=== PATIENT | female | born 1945 | race Caucasian/White ===

== ENCOUNTER → 2018-01-12 | Outpatient (CLI) | payer OTHER ==
[~2018-01-12] MED LIST: ALBU90OI INH; AMIO200 PO; ASPI81EC; Aspir 8181 MG PO; BUPR150ER PO; CALCAVITD PO; CHOL10002 PO; Cranberry500 MG; DILT180; FISH1000 PO; Ferosul325 MG PO; Flecainide Acet50 MG PO; GABA300 PO; GLIP5 PO; GLUMETZA PO; HYDCHL25 PO; IBUP800 PO; INSULANPEN; MAGGLU250 PO; MAGNESIUM GLUCONATE PO; METF500 PO; METF500C PO; METO100ER; METO50ER PO; Metformin HCl1000 MG PO; Prednisone20 MG PO; SPIR25 PO; TORSE20 PO; VARE1 PO; XARELTO20 MG PO
== END | disposition home or self-care (01) ==
LOC: LAB SRC 14:00
DX: E11.65 Type 2 diabetes mellitus with hyperglycemia (principal)
CPT/HCPCS: 82043

== ENCOUNTER 2018-01-18 18:22 | Emergency (ER) | payer OTHER ==
[~2018-01-18] VITALS: Ht 170.2 cm; Wt 117.9 kg
[~2018-01-18 18:22] MED LIST changes: -Ferosul325 MG PO; -INSULANPEN; -Prednisone20 MG PO
[2018-01-18 19:05] LABS: BASOPHILS ABSOLUTE AUTO 0.05 K/mm3 (0.00-0.23); BASOPHILS PERCENT AUTO 0 % (0-2); EOSINOPHILS ABSOLUTE AUTO 0.13 K/mm3 (0.00-0.68); EOSINOPHILS PERCENT AUTO 1 % (0-6); Hematocrit 30.8 % (33.0-51.0); Hemoglobin 8.4 g/dL (11.5-16.0); IMMATURE GRAN ABSOLUTE AUTO 0.08 K/mm3 (0.00-0.10); IMMATURE GRAN PERCENT AUTO 1 % (0-1); LYMPHOCYTES ABSOLUTE AUTO 1.82 K/mm3 (0.84-5.20); LYMPHOCYTES PERCENT AUTO 15 % (21-46); MONOCYTES ABSOLUTE AUTO 0.76 K/mm3 (0.16-1.47); MONOCYTES PERCENT AUTO 6 % (4-13); Mean Corpuscular HGB 19.2 pg (26.0-34.0); Mean Corpuscular HGB Conc 27.3 g/dL (31.5-36.5); Mean Corpuscular Volume 70 fL (80-100); Mean Platelet Volume 10.1 fL (9.1-12.4); NEUTROPHILS ABSOLUTE AUTO 9.09 K/mm3 (1.96-9.15); NEUTROPHILS PERCENT AUTO 76 % (41-73); Platelet Count 458 K/mm3 (150-400); RDW Coefficient Variation 19.6 % (11.7-14.2); Red Blood Cell Count 4.38 M/mm3 (3.80-5.20); White Blood Cell Count 11.93 K/mm3 (4.00-11.30)
[2018-01-18 19:26] LABS: Alanine Aminotransfer (ALT/SGP 19 U/L (12-78); Albumin/Globulin Ratio 0.8 (0.8-1.8); Alk Phos 106 U/L (50-136); Anion Gap 9 mmol/L (6-16); Aspartate Aminotrans (AST/SGOT 19 U/L (12-37); Bilirubin, Total 0.3 mg/dL (0.1-1.0); Blood Urea Nitrogen 23 mg/dL (8-24); Bun/Creatinine Ratio 22.8 (12.0-20.0); CO2, Blood 32 mmol/L (21-32); Calcium, Blood 8.5 mg/dL (8.5-10.1); Chloride, Blood 99 mmol/L (98-108); Creatinine, Blood 1.01 mg/dL (0.40-1.00); Globulin, Blood 3.8 g/dL (2.2-4.0); Glomerular Filtration Rate 57 (60-); Glucose, Blood 153 mg/dL (70-99); Potassium, Blood 3.7 mmol/L (3.5-5.5); Sodium, Blood 140 mmol/L (136-145); Total Protein, Blood 6.8 g/dL (6.4-8.2); Troponin I <0.015 ng/mL (0.000-0.040)
[2018-01-18] MEDS ORDERED: Prednisone20 MG PO (20:32)
[2018-03-02] MEDS ORDERED: INSULANPEN (22:21)
== END 2018-01-18 20:43 | disposition home or self-care (01) ==
LOC: ER 18:22
PROVIDERS: Physician Assistant
DX: J44.1 Chronic obstructive pulmonary disease with (acute) exacerbation (principal); R60.0 Localized edema; Z79.84 Long term (current) use of oral hypoglycemic drugs; Z79.899 Other long term (current) drug therapy; I48.91 Unspecified atrial fibrillation; E11.9 Type 2 diabetes mellitus without complications; F17.210 Nicotine dependence, cigarettes, uncomplicated
CPT/HCPCS: 36415; 71046; 80053; 83880; 84484; 85025; 93005; 93010; 94640; 96374; 96375; 99283; J1940; J2930

== ENCOUNTER 2018-03-08 08:53 | Day surgery (SDC) | payer OTHER ==
[~2018-03-08] VITALS: Ht 170.2 cm; Wt 111.9 kg
[~2018-03-08 08:53] MED LIST changes: +INSULANPEN; +Prednisone20 MG PO
[2018-03-08] MEDS ORDERED: Ferosul325 MG PO (09:35)
== END 2018-03-08 11:00 | disposition home or self-care (01) ==
LOC: ORSCSDS 08:53
PROVIDERS: Internal Medicine Gastroenterology
PROC: 0DB68ZX Excision of Stomach, Via Natural or Artificial Opening Endoscopic, Diagnostic (ICD-10-PCS; principal; 2018-03-08 10:15)
PROC: 0DB98ZX Excision of Duodenum, Via Natural or Artificial Opening Endoscopic, Diagnostic (ICD-10-PCS; principal; 2018-03-08 10:15)
DX: D50.9 Iron deficiency anemia, unspecified (principal); K29.80 Duodenitis without bleeding; K20.9 Esophagitis, unspecified; K44.9 Diaphragmatic hernia without obstruction or gangrene; I48.0 Paroxysmal atrial fibrillation; J44.9 Chronic obstructive pulmonary disease, unspecified; E11.22 Type 2 diabetes mellitus with diabetic chronic kidney disease; I12.9 Hypertensive chronic kidney disease with stage 1 through stage 4 chronic kidney disease, or unspecified chronic kidney disease; N18.9 Chronic kidney disease, unspecified; G47.33 Obstructive sleep apnea (adult) (pediatric); F17.210 Nicotine dependence, cigarettes, uncomplicated; E66.01 Morbid (severe) obesity due to excess calories; Z68.41 Body mass index [BMI] 40.0-44.9, adult; Z79.01 Long term (current) use of anticoagulants; Z79.4 Long term (current) use of insulin; Z79.899 Other long term (current) drug therapy
CPT/HCPCS: 82947; 88305; 88342; J0330; J1980; J2250; J2405; J7120

== ENCOUNTER 2019-07-20 06:43 | Day surgery (SDC) | payer MEDICARE, SELFPAY ==
[~2019-07-20] VITALS: Ht 167.6 cm; Wt 107.9 kg
[~2019-07-20 06:43] MED LIST changes: +ALBU3IS; +ALBU90OI; +FLUT1DIS5; +Ferosul325 MG PO; +TRELEGY ELLIPT1 EACH
== END 2019-07-20 09:09 | disposition home or self-care (01) ==
LOC: ORSCSDS 06:43
PROVIDERS: Orthopaedic Surgery
PROC: 01N50ZZ Release Median Nerve, Open Approach (ICD-10-PCS; principal; 2019-07-20 08:15)
DX: G56.01 Carpal tunnel syndrome, right upper limb (principal); E11.9 Type 2 diabetes mellitus without complications; J44.9 Chronic obstructive pulmonary disease, unspecified; G47.33 Obstructive sleep apnea (adult) (pediatric); E66.9 Obesity, unspecified; Z68.38 Body mass index [BMI] 38.0-38.9, adult; Z79.01 Long term (current) use of anticoagulants; Z79.4 Long term (current) use of insulin; Z79.899 Other long term (current) drug therapy; Z87.891 Personal history of nicotine dependence
CPT/HCPCS: 82947; J2250; J2704; J3010; J3370; J7120

== ENCOUNTER 2019-10-28 16:51 | Inpatient (IN) | payer MEDICARE, SELFPAY ==
[~2019-10-28] VITALS: Ht 167.6 cm; Wt 122.9 kg
[~2019-10-28 16:51] MED LIST changes: -ALBU3IS; +DUONEB NEB; +FLECAINIDE ACE150 MG PO; +Fish Oil 10001000 MG PO
[2019-10-28] MEDS ORDERED: Lopressor 50 mg50 MG PO (17:32)
[2019-10-28] MEDS ORDERED: SPIR50 PO (17:32)
[2019-10-28] MEDS ORDERED: ALLO100 PO (17:33)
[2019-10-28 17:37] LABS: BASOPHILS ABSOLUTE AUTO 0.04 K/mm3 (0.00-0.23); BASOPHILS PERCENT AUTO 0 % (0-2); EOSINOPHILS ABSOLUTE AUTO 0.17 K/mm3 (0.00-0.68); EOSINOPHILS PERCENT AUTO 2 % (0-6); Hematocrit 29.6 % (33.0-51.0); IMMATURE GRAN ABSOLUTE AUTO 0.08 K/mm3 (0.00-0.10); IMMATURE GRAN PERCENT AUTO 1 % (0-1); LYMPHOCYTES ABSOLUTE AUTO 1.22 K/mm3 (0.84-5.20); LYMPHOCYTES PERCENT AUTO 11 % (21-46); MONOCYTES ABSOLUTE AUTO 0.59 K/mm3 (0.16-1.47); MONOCYTES PERCENT AUTO 5 % (4-13); Mean Corpuscular Volume 81 fL (80-100); Mean Platelet Volume 10.5 fL (9.1-12.4); NEUTROPHILS ABSOLUTE AUTO 9.03 K/mm3 (1.96-9.15); NEUTROPHILS PERCENT AUTO 81 % (41-73); NRBC ABSOLUTE 0.04 K/mm3 (0.00-0.02); NRBC Auto 0.4 /100 WBC (0.0-0.2); Platelet Count 383 K/mm3 (150-400); RDW Coefficient Variation 19.2 % (11.7-14.2); RDW Standard Deviation 56.8 fL (35.1-46.3); Red Blood Cell Count 3.64 M/mm3 (3.80-5.20); White Blood Cell Count 11.13 K/mm3 (4.00-11.30)
[2019-10-28 17:57] LABS: Anion Gap 8 mmol/L (6-16); Blood Urea Nitrogen 72 mg/dL (8-24); Bun/Creatinine Ratio 41.4 (12.0-20.0); CO2, Blood 28 mmol/L (21-32); Calcium, Blood 8.2 mg/dL (8.5-10.1); Chloride, Blood 102 mmol/L (98-108); Creatinine, Blood 1.74 mg/dL (0.40-1.00); Glomerular Filtration Rate 30 (60-); Glucose, Blood 198 mg/dL (70-99); Potassium, Blood 4.3 mmol/L (3.5-5.5); Sodium, Blood 138 mmol/L (136-145); Troponin I <0.015 ng/mL (0.000-0.040)
[2019-10-28] MEDS ORDERED: VITAMIN D350 MCG PO (19:47)
[2019-10-28] MEDS ORDERED: TRELEGY ELLIPT1 EACH INH (19:48)
[2019-10-28] MEDS ORDERED: BASAGLAR K100 UNIT/1 SC (22:12)
[2019-10-28 23:26] LABS: Creatinine, Urine Random 17.9 mg/dL (27.00-270.00)
[2019-10-28 23:53] LABS: Eosinophils-Raw #,Urine 0; White Blood Cells Urine Rare /hpf (0-5)
[2019-10-29 05:20] LABS: Hematocrit 28.3 % (33.0-51.0); Hemoglobin 7.8 g/dL (11.5-16.0); Mean Corpuscular HGB 22.1 pg (26.0-34.0); Mean Corpuscular HGB Conc 27.6 g/dL (31.5-36.5); Mean Corpuscular Volume 80 fL (80-100); Mean Platelet Volume 11.1 fL (9.1-12.4); Platelet Count 399 K/mm3 (150-400); RDW Coefficient Variation 19.3 % (11.7-14.2); RDW Standard Deviation 55.9 fL (35.1-46.3); Red Blood Cell Count 3.53 M/mm3 (3.80-5.20); White Blood Cell Count 10.72 K/mm3 (4.00-11.30)
--- NOTE | 2019-10-29 05:34 | NUR ---
SHIFT SUMMARY: VSS. AFEB. 02 SATS 94-96% ON 2L 02. SATS HAVE DROPPED LOW 83% WHEN PT REMOVED HER CPAP OR 02 FOR ANY REASON. CONT BIOX IN PLACE. NO RESPIRATORY DISTRESS TONIGHT. PT SLEPT FOR SHORT PERIODS OF TIMES- EACH TIME AFTER PRN OXYCODONE WAS ADMINISTERED. STATES SHE HAS CHRONIC INSOMNIA. SLEPT W/ HOB ELEVATED 30 DEGREES AND MANY PILLOWS TO PROP PT ON HER SIDE. PT RETURNS TO SITTING OR EVEN STANDING POSITION FREQUENTLY DURING THE NIGHT BLAMING LEG AND BACK PAIN. REPORTS BOTH ARE CHRONIC. GENERALIZED EDEMA OBSERVED. LE WHEEPING, ABD PADS APPLIED. SMALL AMT OF REDNESS OBSERVED ON B ANT SHINS- PICTURES TAKEN AND ADDED TO CHART. PT A/OX4, PLEASANT, COOPERATIVE, COMMUNICATES NEEDS WITHOUT DIFFICULTY.
[2019-10-29 05:47] LABS: Bun/Creatinine Ratio 46.1 (12.0-20.0); Calcium, Blood 8.5 mg/dL (8.5-10.1); Creatinine, Blood 1.52 mg/dL (0.40-1.00); Potassium, Blood 4.5 mmol/L (3.5-5.5)
--- NOTE | 2019-10-29 13:09 | NUR ---
CALLED DR CAMARENA AT 1305 TO ASK ABOUT PATIENT'S INDWELLING CATH. EXPLAINED THAT IT WAS PLACED BECAUSE WE ARE DIURESING PATIENT AND SHE BECOMES DYSPNIC WITH ANY EXERTION. THERE WAS PREVIOUSLY NO ACTIVE ORDER. ORDER PROVIDED BY DOCTOR CAMARENA.
--- NOTE | 2019-10-29 17:34 | NUR ---
SHIFT SUMMARY THE PATIENT HAD A DECENT DAY. DENIES PAIN. STILL DYSPNIC ESPECIALLY WITH EXERTION. PATIENT CONTINUES ON HEAVY DOSES OF IV BUMEX, AND HAS CALLE FOR I&O MONITORING WELL FREQUENT VOIDING. PATIENTS BLE WITH SMALL BLISTERS WHICH ARE WEEPING; RE-WRAPPED TODAY WITH ABDs AND ALPESH WRAPS TO HELP COLLECT THE DRAINAGE. THE PATIENT IS OTHERWISE WITHOUT ANY CHANGES TO REPORT ON AT THIS TIME. WILL CONTINUE TO MONITOR AND PROVIDE CARE NEEDED.
--- NOTE | 2019-10-30 03:38 | NUR ---
SHIFT SUMMARY PATIENT ALERT AND ORIENTED. TIRED, BUT IN GOOD SPIRITS OVERNIGHT. PATIENT HAD A HARD TIME SLEEPING AND SPENT MOST OF THE NIGHT DOZING WHILE SITTING ON THE EDGE OF THE BED WITH HER CPAP ON. SHE HAD PAIN IN HER BACK/LEGS AND WAS ADMINISTERED TWO PRN DOSES OF ROXICODONE OVERNIGHT. SHE WAS ABLE TO GET TO THE BATHROOM WITH MINIMAL ASSISTANCE WHILE USING HER CANE. CALLE CATHETER PATENT AND FLOWING. IV IN LEFT UPPER ARM PATENT AND FLUSHED. BED IN LOWEST POSITION WITH WHEELS LOCKED. CALL LIGHT AND BELONGINGS WITHIN REACH. REPORT GIVEN TO GINGER MONAE.
[2019-10-30 04:38] LABS: Hematocrit 27.6 % (33.0-51.0); Hemoglobin 7.9 g/dL (11.5-16.0); Mean Corpuscular HGB 22.1 pg (26.0-34.0); Mean Corpuscular HGB Conc 28.6 g/dL (31.5-36.5); Mean Corpuscular Volume 77 fL (80-100); Mean Platelet Volume 11.1 fL (9.1-12.4); NRBC ABSOLUTE 0.02 K/mm3 (0.00-0.02); NRBC Auto 0.3 /100 WBC (0.0-0.2); Platelet Count 319 K/mm3 (150-400); RDW Coefficient Variation 18.8 % (11.7-14.2); RDW Standard Deviation 52.8 fL (35.1-46.3); Red Blood Cell Count 3.57 M/mm3 (3.80-5.20); White Blood Cell Count 7.16 K/mm3 (4.00-11.30)
[2019-10-30 04:55] LABS: Calcium, Blood 8.6 mg/dL (8.5-10.1); Creatinine, Blood 1.79 mg/dL (0.40-1.00); Potassium, Blood 5.2 mmol/L (3.5-5.5)
--- NOTE | 2019-10-30 11:08 | NUR ---
PATIENT FOUND BY STAFF MEMBERS ABOUT TO COLLAPSE IN HER BATHROOM. PATIENT WAS VERY LETHARGIC AND IT TOOK 2X MAX ASSIST TO ASSIST PATIENT BACK TO HER BED. PATIENT HAD REMOVED HER CONT BIOX WELL HER OXYGEN. VITALS OBTAINED, ALL BUT HR WNL. HR IN THE LOW 30's. DR CAMARENA CALLED AND INFORMED OF SITUATION AT 1105. NEW ORDERS FOR TELE, 12-LEAD EKG AND D/C METOPROLOL.
--- NOTE | 2019-10-30 11:59 | NUR ---
BRIEF INITIAL VISIT AT THE REQUEST OF [facility] MASON TO ADDRESS PT'S DESIRED CODE STATUS. PT WAS INITIALLY DIFFICULT TO WAKE UP. SHE IS SITTING SUPINE, HOB ELEVATED WITH O2 ON VIA MAXIMIZER NASAL CANNULA. SHE APPEARS DYSPNIC EVEN IN SLEEP. SHE IS PALE EXCEPT FOR VERY BRIGHT RED NOSE. PER PT'S RN, PT REMOVES OXYGEN FREQUENTLY FOR LONG PERIODS OF TIME. PT HAS HAD A DECLINE IN CARDIAC AND RESPIRATORY STATUS SINCE YESTERDAY PER RNS AND REQUESTED THAT I VISIT TO ADDRESS HER WISHES WITH HER IN REGARD TO INTUBATION AND CPR. AFTER SEVERAL ATTEMPTS WITH VERBAL AND TACTILE STIMULI PT WOKE ENOUGH TO CONFIRM THAT SHE WAS AWAKE AND UNDERSTOOD THE CONVERSATION. MAXIMO STATES SHE UNDERSTANDS FROM THE DR THAT SHE IS VERY ILL. IF NEEDED TO SUSTAIN HER LIFE SHE DOES WANT CPR AND SHE DOES WANT INTUBATION. HER CURRENT CODE ORDERS ARE IN AGREEMENT WITH THE PT'S WISHES AT THIS TIME. PT DENIES FEELING PAIN OR DISTRESS AT THIS TIME. WHEN I NOTED TO HER THAT SHE APPEARS QUITE DYSPNIC, SHE SHRUGGED HER SHOULDERS. THIS MAY BE HER NORM. I WILL TRY TO FOLLOW UP WITH PT FOR FULL ASSESSMENT WHEN SHE IS MORE AWAKE AND STABLE. RT IN I WAS LEAVING TO COLLECT FOR ORDERED TESTS. REPORTED MY CONVERSATION WITH PT TO RN AND LEFT MESSAGE FOR ROCK MASON.
[2019-10-30 12:11] LABS: Base Excess Venous 0.8 mmol/L; Bicarbonate Venous 25.1 mmol/L (24.0-30.0); PCO2 Venous 39.9 mmHg (38-42); pH Blood Venous 7.41 (7.34-7.37)
--- NOTE | 2019-10-30 13:00 | NUR ---
PATIENTS LEGS CONTINUE TO OOZE. I OFFERED TO CHANGE THE DRESSINGS/WRAPS AND PATIENT DECLINED FOR THIS TIME.
--- NOTE | 2019-10-30 14:12 | NUR ---
PATIENT SLEEPING IN ROOM AT THIS TIME. BIPAP AND CONT BIOX REMAIN ON.
--- NOTE | 2019-10-30 15:03 | NUR ---
DR QUINTERO CAME BY TO SEE THE PATIENT. I INFORMED HIM OF THE SITUATION THAT OCCURED EARLIER THIS AFTERNOON, AFTER LOOKING OVER HER EKG HE STATED THAT THE PATIENT WILL NOT BE GOING IN FOR AN ECHO TOMORROW. FULL LIQUID DIET CONTINUES.
--- NOTE | 2019-10-30 16:55 | NUR ---
SHIFT SUMMARY PATIENT HAD A DIFFICULT DAY, SEE NOTES FROM EARLIER. WENT INTO PATIENTS ROOM ABOUT AN HOUR AGO AND THE PATIENT HAD HER O2 AND CONT BIOX OFF. BOTH WERE REPLACED AND THE PATIENT INSTRUCTED TO KEEP THEM ON. HR REMAINS LOW BUT PATIENT IS STEADY AT THE MOMENT. WILL CONTINUE TO MONITOR AND PROVIDE CARE NEEDED.
[2019-10-31 04:40] LABS: Hematocrit 29.9 % (33.0-51.0); Hemoglobin 8.1 g/dL (11.5-16.0); Mean Corpuscular HGB 21.7 pg (26.0-34.0); Mean Corpuscular HGB Conc 27.1 g/dL (31.5-36.5); Mean Platelet Volume 11.4 fL (9.1-12.4); NRBC ABSOLUTE 0.06 K/mm3 (0.00-0.02); NRBC Auto 0.9 /100 WBC (0.0-0.2); Platelet Count 282 K/mm3 (150-400); RDW Coefficient Variation 18.8 % (11.7-14.2); RDW Standard Deviation 54.5 fL (35.1-46.3); Red Blood Cell Count 3.73 M/mm3 (3.80-5.20); White Blood Cell Count 6.97 K/mm3 (4.00-11.30)
[2019-10-31 04:41] LABS: Mean Corpuscular Volume 80 fL (80-100)
[2019-10-31 04:55] LABS: Calcium, Blood 8.6 mg/dL (8.5-10.1); Creatinine, Blood 2.02 mg/dL (0.40-1.00); Potassium, Blood 5.9 mmol/L (3.5-5.5)
--- NOTE | 2019-10-31 07:22 | NUR ---
NOC SHIFT SUMMARY PT ADMITED FOR COPD EXACERBATION. SHE IS PLEASANT AND COOPERATIVE WITH CARE. SHE IS ON AN OXIMIZER AT 6-7L THIS NIGHT. SHE STATES SHE USUALLY USES HER CPAP AT HOME WITH 2L BEED IN. THIS WAS ATTEMPTED AND DID NOT KEEP HER SATS UP EVEN WITH A 12L BLEED IN OF O2. SATS NEVER GOT ABOVE 87. SWITCHED BACK TO OXIMIZER AND MAINTAINS IN MID 90'S. NO ACUTE CHANGES NOTED THIS NIGHT. VSS WITH APPROPRIATE OXYGEN DELIVERY. REPORT TO ONCOMING RN.
--- NOTE | 2019-10-31 14:00 | NUR ---
PATIENT PICKED UP BY ENDO TEAM AND TAKEN DOWN FOR HER ENDOSCOPY.
--- NOTE | 2019-10-31 14:45 | NUR ---
EGD POSTPONED BY ANESTHESIOLOGIST DUE TO ANNABELLE POTASSIUM LEVEL. DR QUINTERO AWARE, WILL RETURN TO ROOM AND GIVE MED TO TX POTASSIUM LEVEL AND THEN WILL MAKE NPO AFTER THAT.
--- NOTE | 2019-10-31 15:25 | NUR ---
PATIENT RETURNED TO ROOM WITHOUT PROCEDURE DUE TO POTASSIUM BEING TOO HIGH. MEDICATION ADMINISTERED TO HELP LOWER THE POTASSIUM AND PROCEDURE IS SET TO TAKE PLACE TOMORROW LATE AFTERNOON. PATIENT PLACED ON A CARDIAC DIET AT THIS TIME.
[2019-10-31 17:30] LABS: Bilirubin, Urine Neg (Neg); Blood, Urine 3+ (Neg); Glucose Qualitative, Urine Neg (Neg); Ketones, Urine Neg (Neg); Leukocyte Esterase, Urine 2+ (Neg); Nitrite, Urine Neg (Neg); Protein, Urine Neg (Neg); Urobilinogen, Urine NORM (Normal)
[2019-10-31 17:40] LABS: Appearance, Urine Hazy (Clear); Color, Urine Yellow (P-Yellow)
[2019-10-31 17:42] LABS: Bacteria Few /hpf; Squamous Epithelial Cells Rare /hpf (Few)
--- NOTE | 2019-10-31 18:01 | NUR ---
SHIFT SUMMARY THE PATIENT DID NOT END UP GETTING THE ENDOSCOPY TODAY DUE TO ELEVATED POTASSIUM LEVELS. PATIENT PLACED ON A CARDIAC DIET AND WILL RETURN TO NPO STATUS AT NOON TOMORROW WITH PLANS FOR THE SCOPE TOMORROW AFTERNOON. HR HAS BEEN STEADILY IN THE 50's; PATIENT REMAINS ON TELE AND CONTINUOUS BIOX AND HAS O2 VIA OXYMIZER AT 7L. PATIENT CALLS FOR STAFF ASSIST NEEDED; SHE WILL STAND AT THE EDGE OF THE BED TO STRETCH NEEDED HOWEVER KNOWS NOT TO ATTEMPT TO AMBULATE WITHOUT SBA. PATIENT NOW BEING FOLLOWED BY DR. MCCLENDON IN ADDITION TO DR CAMARENA AND DR ALLEN. WILL CONTINUE TO MONITOR AND PROVIDE CARE NEEDED.
[2019-10-31 18:14] LABS: Albumin, Blood 3.1 g/dL (3.4-5.0); Anion Gap 9 mmol/L (6-16); Blood Urea Nitrogen 87 mg/dL (8-24); Bun/Creatinine Ratio 43.5 (12.0-20.0); CO2, Blood 27 mmol/L (21-32); CPK Creatine Kinase 32 U/L (26-193); Calcium, Blood 8.5 mg/dL (8.5-10.1); Chloride, Blood 94 mmol/L (98-108); Glomerular Filtration Rate 26 (60-); Glucose, Blood 262 mg/dL (70-99); Phosphorus, Blood 5.5 mg/dL (2.5-4.9); Potassium, Blood 5.3 mmol/L (3.5-5.5); Sodium, Blood 130 mmol/L (136-145)
--- NOTE | 2019-10-31 18:37 | NUR ---
Initial spiritual care note: Mrs. Ramirez was alone in room and expressed frustration that she has been NPO since "tuesday." She clearly did not want lengthy visit, but was appreciaitve of prayer. I will remain available.
[2019-11-01 04:55] LABS: BASOPHILS ABSOLUTE AUTO 0.01 K/mm3 (0.00-0.23); BASOPHILS PERCENT AUTO 0 % (0-2); EOSINOPHILS PERCENT AUTO 0 % (0-6); Hematocrit 27.7 % (33.0-51.0); Hemoglobin 7.5 g/dL (11.5-16.0); IMMATURE GRAN ABSOLUTE AUTO 0.15 K/mm3 (0.00-0.10); IMMATURE GRAN PERCENT AUTO 2 % (0-1); LYMPHOCYTES ABSOLUTE AUTO 0.12 K/mm3 (0.84-5.20); LYMPHOCYTES PERCENT AUTO 2 % (21-46); MONOCYTES ABSOLUTE AUTO 0.11 K/mm3 (0.16-1.47); MONOCYTES PERCENT AUTO 2 % (4-13); Mean Corpuscular HGB 21.4 pg (26.0-34.0); Mean Corpuscular HGB Conc 27.1 g/dL (31.5-36.5); Mean Corpuscular Volume 79 fL (80-100); NEUTROPHILS ABSOLUTE AUTO 7.12 K/mm3 (1.96-9.15); NEUTROPHILS PERCENT AUTO 95 % (41-73); NRBC ABSOLUTE 0.05 K/mm3 (0.00-0.02); NRBC Auto 0.7 /100 WBC (0.0-0.2); Platelet Count 275 K/mm3 (150-400); RDW Coefficient Variation 18.8 % (11.7-14.2); RDW Standard Deviation 54.3 fL (35.1-46.3); White Blood Cell Count 7.51 K/mm3 (4.00-11.30)
[2019-11-01 05:12] LABS: Anion Gap 9 mmol/L (6-16); Blood Urea Nitrogen 88 mg/dL (8-24); Bun/Creatinine Ratio 43.1 (12.0-20.0); CO2, Blood 26 mmol/L (21-32); Calcium, Blood 8.2 mg/dL (8.5-10.1); Chloride, Blood 97 mmol/L (98-108); Creatinine, Blood 2.04 mg/dL (0.40-1.00); Glomerular Filtration Rate 25 (60-); Glucose, Blood 389 mg/dL (70-99); Potassium, Blood 5.3 mmol/L (3.5-5.5); Sodium, Blood 132 mmol/L (136-145)
--- NOTE | 2019-11-01 06:32 | NUR ---
SHIFT SUMMARY PT IS A 74 Y/O FEMALE, ADMITTED FOR COPD EXACERBATION. SHE IS A&O X 3, AND A 1PA UP TO THE [facility] [place]. PT REMAINED ON O2 VIA OXIMIZER @ 9L, AND USES A CPAP AT NIGHT WITH AN O2 BLEED IN. THE PT HAD AN EPISODE OF LOW O2 WHILE SLEEPING WITH THE CPAP ON, DOWN TO 84-85%. THE O2 WAS INCREASED FROM 8L TO 10L, BUT THE PT'S SATS DID NOT INCREASE UNTIL PT WAS WOKEN. ALL OTHER VITALS STABLE. NO OTHER ACUTE CHANGES IN PT CONDITION NOTED. WILL CONTINUE TO MONITOR AND TREAT PER EMAR UNTIL HAND OFF TO DAY SHIFT RN.
--- NOTE | 2019-11-01 15:18 | NUR ---
History, Chart, Medications and Allergies reviewed before start of procedure.Patient confirms NPO status and agrees with scheduled surgery.
--- NOTE | 2019-11-01 15:52 | NUR ---
11/01/19 1552 KEVON BEAN History, Chart, Medications and Allergies reviewed before start of procedure.3-LEAD EKG REVIEWED WITH PHYSICIAN PRIOR TO START OF PROCEDURE.O2 VIA N/C INTACT THROUGHOUT SEDATION/PROCEDURE. MONITOR INTACT WITH CONTINUOUS PULSE OXIMETRY AND INTERMITTENT BP.MAC WITH DR. TEIXEIRA.
--- NOTE | 2019-11-01 17:17 | NUR ---
SUMMARY PT SCHEDULED FOR EGD, THIS AM SHE HAD WATER/ICE, THEN NPO @ 1200, WENT OUT FOR EGD APPROX 1330. BACK TO ROOM @ 1530, DR QUINTERO IN TO SEE HER STATE NORMAL FINDINGS, ORDER ADA DIET. H&H 7.5/27.7, FE+ 325MG TAB GIVEN. SHE CONTINUES TO EXPERIENCE INCREASED O2 NEEDS, @ 9-10 LITERS/MIN TODAY, RESPTHER MANAGING. PT HAS CONTINUING WET/CONGESTED COUGH, DR CAMARENA ORDER CXR. DR MCCLENDON ORDER IV BUMEX. BLE EDEMATOUS, 3+, TIGHT, LEGS WEEPY WRAPPED W ABD/ALPESH WRAP. SHE IS A/O X 4, PLEASANT, 1 ASSIST UP TO CHAIR. VSS.
--- NOTE | 2019-11-02 04:36 | NUR ---
SHIFT SUMMARY PT IS A 74 Y/O FEMALE, ADMITTED FOR COPD EXACERBATION. SHE IS A 1PA UP TO THE [facility] [place], WITH A CALLE IN PLACE FOR STRICT I&O. PT REPORTED GENERALIZED PAIN, AND WAS MEDICATED TWICE WITH PRN OXYCODONE. NO COMPLAINTS OF NAUSEA. PT DOES GET SOB WITH EXERTION. SHE IS ON CONTINUOUS BIOX, AND TENDS TO DROP TO 85-88% WHILE SLEEPING ON THE BIPAP. PT'S O2 BLEED IN WAS INCREASED TO 12L OVER THE NIGHT DUE TO O2 SATS DROPPING. PT IS ALSO ON 10L O2 VIA OXIMIZER WHILE AWAKE. AT BEDTIME, CBG WAS 404. THE HOSPITALIST MARBELLA NEWSOME WAS CONSULTED, AND THE PT WAS STARTED BACK UP ON HER HOME DOSE OF LANTUS, 60 UNITS BID. PT SLEPT WELL OFF AND ON DURING THE NIGHT. NO OTHER ACUTE CHANGES IN PT CONDITION NOTED. WILL CONTINUE TO MONITOR AND TREAT PER EMAR UNTIL HAND OFF TO DAY SHIFT RN.
[2019-11-02 08:07] LABS: BASOPHILS PERCENT AUTO 0 % (0-2); EOSINOPHILS PERCENT AUTO 0 % (0-6); Hemoglobin 7.4 g/dL (11.5-16.0); IMMATURE GRAN ABSOLUTE AUTO 0.06 K/mm3 (0.00-0.10); IMMATURE GRAN PERCENT AUTO 1 % (0-1); LYMPHOCYTES ABSOLUTE AUTO 0.09 K/mm3 (0.84-5.20); LYMPHOCYTES PERCENT AUTO 1 % (21-46); MONOCYTES ABSOLUTE AUTO 0.38 K/mm3 (0.16-1.47); MONOCYTES PERCENT AUTO 5 % (4-13); Mean Corpuscular HGB Conc 27.4 g/dL (31.5-36.5); Mean Corpuscular Volume 80 fL (80-100); Mean Platelet Volume 10.9 fL (9.1-12.4); NEUTROPHILS ABSOLUTE AUTO 7.21 K/mm3 (1.96-9.15); NEUTROPHILS PERCENT AUTO 93 % (41-73); NRBC ABSOLUTE 0.05 K/mm3 (0.00-0.02); NRBC Auto 0.6 /100 WBC (0.0-0.2); Platelet Count 240 K/mm3 (150-400); RDW Coefficient Variation 18.6 % (11.7-14.2); RDW Standard Deviation 54.4 fL (35.1-46.3); Red Blood Cell Count 3.37 M/mm3 (3.80-5.20); White Blood Cell Count 7.74 K/mm3 (4.00-11.30)
[2019-11-02 08:24] LABS: Albumin, Blood 2.9 g/dL (3.4-5.0); Anion Gap 2 mmol/L (6-16); Blood Urea Nitrogen 76 mg/dL (8-24); Bun/Creatinine Ratio 47.5 (12.0-20.0); CO2, Blood 34 mmol/L (21-32); Calcium, Blood 8.4 mg/dL (8.5-10.1); Chloride, Blood 101 mmol/L (98-108); Glomerular Filtration Rate 33 (60-); Glucose, Blood 395 mg/dL (70-99); Phosphorus, Blood 4.2 mg/dL (2.5-4.9); Potassium, Blood 5.3 mmol/L (3.5-5.5); Sodium, Blood 137 mmol/L (136-145)
--- NOTE | 2019-11-02 08:55 | NUR ---
PATIENT STARTED THE MORNING WITH A BLOOD SUGAR OF 407. SPOKE WITH DR. CAMARENA AND HE STATED TO GIVE THE LANTUS ORDER OF 60 UNITS AND THE THE 12 UNITS OF SLIDING SCALE. PATIENT WAS GIVEN THE 12 UNITS OF SLIDING SCALE AND HER BLOOD SUGAR ONE HOUR LATER IS 380. WILL ALERT DR. CAMARENA AT THIS TIME OF THE SLIGHT CHANGE OF BLOOD SUGAR.
--- NOTE | 2019-11-02 09:42 | NUR ---
PATIENT IS VERY LETHARGIC THIS MORNING. SHE IS NOW ON THE NASAL CANNULA. BLOOD SUGAR IS STILL HIGH AND PATIENT REFUSED TO EAT HER BREAKFAST THIS MORNING DUE TO LETHARGY.
--- NOTE | 2019-11-02 18:14 | NUR ---
SHIFT SUMMARY PATIENT PLEASANT. ALERT AND ORIENTED. NO ACUTE CONCERNS AT THIS TIME. HER LEGS ARE UNWRAPPED, NO WEEPING. EDEMA IS DOWN. PATIENT DOES NOTE THAT SHE IS FEELING STEADY TODAY. SHE HAS BEEN STANDING AT THE EDGE OF THE BED INDEPENDENTLY. PATIENT DENIES ANY PAIN OR CONCERNS. TELE IS READING SINUS WITH A BUNDLE BRANCH BLOCK, AND FIRST DEGREE HEART BLOCK.
[2019-11-02 20:49] LABS: Bun/Creatinine Ratio 47.7 (12.0-20.0); Calcium, Blood 8.6 mg/dL (8.5-10.1); Creatinine, Blood 1.51 mg/dL (0.40-1.00); Magnesium, Blood 2.7 mg/dL (1.6-2.4); Potassium, Blood 4.3 mmol/L (3.5-5.5)
--- NOTE | 2019-11-03 04:15 | NUR ---
RECIEVED CALL FROM TELE MONITOR AT APPROX 193 RELATING THAT PT HEART RATE HAD INCREASED SIGNIFICANTLY. UP TO 150'S. CAME TO ROOM AND OBSERVED PT HR WAS IN THE 150'S AND EVEN CLIMBING INTO THE 170'S. PT DENIED CHEST PAIN BUT DID FEEL HEART RACING. LETHA MCDONALD STAYED WITH PT WHILE I CALLED TO HOSPITALIST FRED NEWSOME. RECIEVED ORDER TO OBTAIN EKG AND 5ML LOPRESSOR IV. MERCEDEZ CAME TO ROOM EKG OBTAINED AND LOPRESSOR GIVEN. REDUCED HR TO THE 130'S. ANOTHER 2.5MG LOPRESSOR ORDERED IV AND HR REDUCED TO AROUND 110. SHORTLY AFTER THIS HR INCREASED AGAIN TO 130'S-140'S. CALLED TO MERCEDEZ AND OBTAINED ORDERS FOR TRANSFER TO PCU, PORTALBE XRAY, AND CARDIZEM DRIP STARTING AT 5MG PER HOUR. REPORT TO KAMALA JEWEL HOLE GAUGER AT 2054. PT TRANSFERED TO PCU AT 2104. PT AAOX4, RESP EVEN ON 10L OXIMIZER.
[2019-11-03 04:22] LABS: BASOPHILS ABSOLUTE AUTO 0.02 K/mm3 (0.00-0.23); BASOPHILS PERCENT AUTO 0 % (0-2); EOSINOPHILS ABSOLUTE AUTO 0.01 K/mm3 (0.00-0.68); EOSINOPHILS PERCENT AUTO 0 % (0-6); Hematocrit 28.4 % (33.0-51.0); Hemoglobin 7.7 g/dL (11.5-16.0); IMMATURE GRAN ABSOLUTE AUTO 0.11 K/mm3 (0.00-0.10); IMMATURE GRAN PERCENT AUTO 1 % (0-1); LYMPHOCYTES ABSOLUTE AUTO 0.82 K/mm3 (0.84-5.20); LYMPHOCYTES PERCENT AUTO 5 % (21-46); MONOCYTES ABSOLUTE AUTO 0.93 K/mm3 (0.16-1.47); MONOCYTES PERCENT AUTO 5 % (4-13); Mean Corpuscular HGB 21.5 pg (26.0-34.0); Mean Corpuscular HGB Conc 27.1 g/dL (31.5-36.5); Mean Corpuscular Volume 79 fL (80-100); Mean Platelet Volume 10.3 fL (9.1-12.4); NEUTROPHILS ABSOLUTE AUTO 15.86 K/mm3 (1.96-9.15); NEUTROPHILS PERCENT AUTO 89 % (41-73); NRBC ABSOLUTE 0.03 K/mm3 (0.00-0.02); NRBC Auto 0.2 /100 WBC (0.0-0.2); Platelet Count 224 K/mm3 (150-400); RDW Coefficient Variation 18.6 % (11.7-14.2); RDW Standard Deviation 53.3 fL (35.1-46.3); Red Blood Cell Count 3.58 M/mm3 (3.80-5.20); White Blood Cell Count 17.75 K/mm3 (4.00-11.30)
[2019-11-03 04:47] LABS: Anion Gap 3 mmol/L (6-16); Blood Urea Nitrogen 68 mg/dL (8-24); Bun/Creatinine Ratio 48.9 (12.0-20.0); CO2, Blood 36 mmol/L (21-32); Calcium, Blood 8.6 mg/dL (8.5-10.1); Chloride, Blood 102 mmol/L (98-108); Creatinine, Blood 1.39 mg/dL (0.40-1.00); Glomerular Filtration Rate 39 (60-); Glucose, Blood 32 mg/dL (70-99); Phosphorus, Blood 2.6 mg/dL (2.5-4.9); Potassium, Blood 3.7 mmol/L (3.5-5.5); Sodium, Blood 141 mmol/L (136-145)
--- NOTE | 2019-11-03 05:43 | NUR ---
PCU NOC SHIFT SUMMARY - TRANSFER FROM MEDICAL PATIENT ARRIVED FROM MEDICAL FLOOR ON 10 LPM OXYMIZER CANNULA; PATIENT ABLE TO STAND AND TRANSFER FROM [facility] TO UNIT BED. CARDIEZEM STARTED PER EMAR UPON ARRIVAL. VSS. CONTINUOUS BIOX IN PLACE. PATIENT HEART RATE AFIB IN THE 130S UPON ARRIVAL - CURRENTLY DOWN TO 100-100 ON 15 ML/HR OF CARDIEZEM T/O SHIFT. PATIENT TOLERATED HER CPAP WELL DURING SLEEPING PERIODS. PATIENT HAS EXPIRTORY WHEEZES TO RHONIC T/O LOBES FOR LUNG SOUNDS - PATIENT WEARS OXYGEN 2 LPM AND CPAP AT HOME. PATIENT HAS HACKING CHRONIC NONPRODUCTIVE COUGH. PATIENT EDUCATED TO UNIT AND ORIENTED TO ROOM. PATIENT DENIES ANY PAIN T/O SHIFT. PATIENT HAS SEVERE WHEEPING OF BLE WITH 3-4 + PITTING EDEMA. SMALL SCABS SCATTERED T/O WITH BRUISING NOTED. PATIENT IN NO ACUTE DISTRESS T/O SHIFT. PATIENT SBA TO BEDSIDE COMMODE. CALLE CATH REMOVED AND PATIENT VOID X2 AFTER REMOVAL. WILL CONTINUE TO MONITOR AND REPORT TO DAYSHIFT RN.
--- NOTE | 2019-11-03 07:22 | NUR ---
ASSUMED CARE: PT SITTING AT SIDE OF BED. OXYMIZER IN PLACE AT 7L. CARDIZEM GTT AT 15 MG/HR AT THIS TIME. AFIB 103 AT THIS TIME. DENIES NEEDS OR CONCERNS AT THIS TIME.
--- NOTE | 2019-11-03 10:00 | NUR ---
DISCUSSED WITH DR CAMARENA PT'S CBGS THIS AM. STATED HE WOULD REVIEW. DR ALSO AWARE THAT NO CURRENT ANTICOAGULATION ORDERED. STATED ANTICOAGULATION IS PER INSTRUCTION OF DR QUINTERO DUE TO RECENT GI BLEED.
--- NOTE | 2019-11-03 18:42 | NUR ---
SHIFT SUMMARY: PT RECIEVED ONE UNIT OF PRBCS FOR ANEMIA. REMAINS ON CARDIZEM GTT AT 10MG/HR AT THIS TIME. LOW 90S ON 7L OXYMIZER. SBA TO BSC. DENIES NEEDS OR CONCERNS. REMAINS IN AFIB
--- NOTE | 2019-11-04 05:45 | NUR ---
END OF SHIFT SUMMARY NO ACUTE CHANGES THIS SHIFT. PT REMAINS ON 7L OXYMIZER AND 7L BLEEDIN CPAP AT REST. DOES HAVE INT WHEEZING BUT THIS NGENERALLY RESIDES. HAS HAD PRN RT TREATMENTS BUT HAS OVERALL STATED IMPROVEMENT IN BREATHING. REMAINS IN AFIB, CARDIZEM TITRATED TO 5 THIS SHIFT DUE TO HR MAINTAINING <90 BPM. HAS BEEN MOBILE IN BED AND HAS BEEN UP TO BSC MULTIPLE TIMES THIS SHIFT WITH INSTRUCTOR TRAFFIC SAFETY. TOLERATES THIS WELL BUT NEEDS HELP MANAGING IV/O2 LINES. LEGS EXTREMELY WEEPY. WILL CONTINUE TO MONITOR UNTIL SHIFT CHANGE.
[2019-11-04 08:42] LABS: Hematocrit 34.8 % (33.0-51.0); Hemoglobin 9.6 g/dL (11.5-16.0)
[2019-11-04 09:00] LABS: Albumin, Blood 2.9 g/dL (3.4-5.0); Anion Gap 2 mmol/L (6-16); Blood Urea Nitrogen 53 mg/dL (8-24); Bun/Creatinine Ratio 48.2 (12.0-20.0); CO2, Blood 38 mmol/L (21-32); Calcium, Blood 8.5 mg/dL (8.5-10.1); Chloride, Blood 100 mmol/L (98-108); Glomerular Filtration Rate 51 (60-); Glucose, Blood 101 mg/dL (70-99); Phosphorus, Blood 2.3 mg/dL (2.5-4.9); Potassium, Blood 3.9 mmol/L (3.5-5.5); Sodium, Blood 140 mmol/L (136-145)
--- NOTE | 2019-11-04 17:43 | NUR ---
EVENING NOTE PT AWAKE AND ALERT. AFIB. CONTINUES ON CARDIZEM GTT 5MG/HR. HR 100-120BPM. DR CAMARENA AWARE. DR CAMARENA REQUESTED AN EXTRA METOPROLOL 12.5 MG BE GIVEN TO PT. VS. UP TO THE BSC FREQUENTLY TO VOID LARGE AMOUNTS. EDEMA BLE 3+ AND STILL WEEPING. DRESSED BLE WITH ABD,KERLEX AND STOCKENETTE. CONTIBNUE POT.
--- NOTE | 2019-11-05 05:25 | NUR ---
END OF SHIFT SUMMARY NO ACUTE CHANGES THIS SHIFT. VSS. REMAINS IN AFIB 80'S TO 90'S, CARDIZEM GTT 5, BP STABLE. O2 TITRATED TO 5L THIS SHIFT, PT HAS TOLERATED THIS WELL. LEGS REMAIN WRAPPED R/T WEEPING. PT HAS BEEN ON HER CPAP WITH 5L BLEEDIN FOR MAJORITY OF SHIFT AND HAS APPEARED TO SLEEP SOUNDLY THIS SHIFT. [facility] [place] [facility] MULTIPLE TIMES. WILL CONTINUE TO MONITOR UNTIL SHIFT CHANGE.
[2019-11-05 15:07] LABS: A/G RATIO 1.2 (0.7-1.7); ALBUMIN 3.2 g/dL (2.9-4.4); ALPHA-1-GLOBULIN 0.3 g/dL (0.0-0.4); ALPHA-2-GLOBULIN 0.6 g/dL (0.4-1.0); BETA GLOBULIN 1.1 g/dL (0.7-1.3); GAMMA GLOBULIN 0.9 g/dL (0.4-1.8); GLOBULIN, TOTAL 2.9 g/dL (2.2-3.9); IMMUNOGLOBULIN A, QN, SERUM 373 mg/dL (64-422); IMMUNOGLOBULIN G, QN, SERUM 955 mg/dL (700-1600); IMMUNOGLOBULIN M, QN, SERUM 30 mg/dL (26-217); M-SPIKE Not Observed g/dL (Not Observed); PROTEIN, TOTAL, SERUM 6.1 g/dL (6.0-8.5)
--- NOTE | 2019-11-05 18:41 | NUR ---
SHIFT NOTE PT HAS HAD OXYGEN TITRATED DOWN TO 3L NASAL CANNULA, AND CARDIZEM HAS BEEN STOPPED. HR IS 90s WITH AFIB, SPO2 93% ON THE 3L O2. PT SITTING UP AT BEDSIDE VISITING WITH FAMILY. PT TALKING IN FULL SENTENCES. PT HAS BEEN UP TO BATHROOM AND BEDSIDE CHAIR WITH USE OF FWW W/O DIFF. PT A/O X4. LESS EDEMA NOTED TO LOWER LEGS AT END OF SHIFT AND WHEEPING FROM LOWER LEGS HAS SLOWED
--- NOTE | 2019-11-05 19:15 | NUR ---
ASSUME CARE: REPORT RECIEVED FROM BENY OFF GOING RN. MONITOR INTACT SHOWING A FIB HEART RATE 80'S-100'S. PERIODS OF 120'S W ACTIVITY. RECOVERS WITH IN 10-15 MIN. REQUEST BSC MOD ASSIST WITH ONE PERSON. VOIDS MONA URINE. ABDOMEN SOFT WITH BOWERL OUNDS FOUR QUADS. DRESSINGS TO LEGS CHANGED WITH WEEPING EDEMA NOTED. INCONTINENT OF URINE. CONTINUE TO MONITOR AND REPORT CHANGE IN PATIENT CONDITION
[2019-11-06 04:01] LABS: Albumin, Blood 2.5 g/dL (3.4-5.0); Anion Gap 2 mmol/L (6-16); Blood Urea Nitrogen 52 mg/dL (8-24); Bun/Creatinine Ratio 44.8 (12.0-20.0); CO2, Blood 37 mmol/L (21-32); Calcium, Blood 8.1 mg/dL (8.5-10.1); Chloride, Blood 102 mmol/L (98-108); Creatinine, Blood 1.16 mg/dL (0.40-1.00); Glomerular Filtration Rate 48 (60-); Glucose, Blood 151 mg/dL (70-99); Phosphorus, Blood 2.2 mg/dL (2.5-4.9); Potassium, Blood 4.1 mmol/L (3.5-5.5); Sodium, Blood 141 mmol/L (136-145)
--- NOTE | 2019-11-06 06:21 | NUR ---
SHIFT SUMMARY RESTS QUIETLY WHEN UNDISTURBED MONITOR INTACT SHOWING A FIB. HEART RATE 100'S-110'S. SPO2 94-[address] OR O2 2 6L/MIN LUNG SOUNDS COARSE WITH OCC HARSH COUGH. ABDOMEN SOFT WITH BOWEL SOUNDS FOUR QUADS ATTEND IN PLACE ECONDARY TO OCC INCONTINENCE UP TO BSC WITH MINIMAL ASSIST AND WALKER. VOIDS MONA ODERIFORUS SMELLING URINE DRESSINGS TO LOWER EXTREMITIES INTACT SECONDARY TO WEEPING EDEMA CONTINUE TO MONITOR and repot change in patient condition
--- NOTE | 2019-11-06 18:49 | NUR ---
SHIFT SUMMARY PT A&Ox4. CALM AND COOPERATIVE WITH CARE. PT RESTING IN BED; UP TO BSC WITH 1 PERSON ASSIST. PT REPORTS PAIN IN BLE; MEDICATED x1 WITH OXYCODONE WITH POSITVE RESULTS. PT SOB WITH EXERTION; PT ON 3L O2 VIA OXYMIZER; PT 90-92% T/P SHIFT, DIPPING TO 87-89 WITH EXERTION. PT DENIES NAUSEA; HAS GOOD APPETEITE. HR AFIB 90-110'S, OCCASIONALLY TOUCHING 120'S WITH ACTIVITY. VSS. NO OTHER ACUTE CHANGES NOTED DURING SHIFT WILL CONTINUE TO MONITOR UNILT RPEORT GIVEN TO ONCOMING RN.
--- NOTE | 2019-11-07 01:41 | NUR ---
started cpap, placed and adjusted mask as pt directed, currently watching tv, no alarm sounding, o2%>92, will continue to monitor and treat
[2019-11-07 03:46] LABS: BASOPHILS PERCENT AUTO 0 % (0-2); EOSINOPHILS PERCENT AUTO 1 % (0-6); Hematocrit 33.3 % (33.0-51.0); Hemoglobin 9.1 g/dL (11.5-16.0); IMMATURE GRAN ABSOLUTE AUTO 0.07 K/mm3 (0.00-0.10); IMMATURE GRAN PERCENT AUTO 1 % (0-1); LYMPHOCYTES ABSOLUTE AUTO 0.62 K/mm3 (0.84-5.20); LYMPHOCYTES PERCENT AUTO 5 % (21-46); MONOCYTES PERCENT AUTO 5 % (4-13); Mean Corpuscular HGB 22.2 pg (26.0-34.0); Mean Corpuscular HGB Conc 27.3 g/dL (31.5-36.5); Mean Corpuscular Volume 81 fL (80-100); Mean Platelet Volume 11.7 fL (9.1-12.4); NEUTROPHILS ABSOLUTE AUTO 10.22 K/mm3 (1.96-9.15); NEUTROPHILS PERCENT AUTO 88 % (41-73); Platelet Count 196 K/mm3 (150-400); RDW Coefficient Variation 19.2 % (11.7-14.2); RDW Standard Deviation 56.8 fL (35.1-46.3); Red Blood Cell Count 4.09 M/mm3 (3.80-5.20); White Blood Cell Count 11.61 K/mm3 (4.00-11.30)
--- NOTE | 2019-11-07 07:34 | NUR ---
no acute changes in condition during shift, bed in low position, saline locked, 4L via oximizer, RT working on solving issue with optimizer, denies sob, ls clear, using ear probe for better reading than digits, bsr shared with returning day nurse and pt
[2019-11-07 08:47] LABS: Bun/Creatinine Ratio 48.1 (12.0-20.0); Calcium, Blood 8.3 mg/dL (8.5-10.1); Creatinine, Blood 1.06 mg/dL (0.40-1.00); Potassium, Blood 4.2 mmol/L (3.5-5.5)
--- NOTE | 2019-11-07 18:19 | NUR ---
SHIFT SUMMARY PT A&Ox4, CALM AND COOPERATIVE TO CARE. PT UP IN RECLINDER FOR MAJORITY OF SHIFT; ENCOURAGED TO KEEP BLE ELEVATED. PT REPORTS BLE PAIN; RELEIVED WITH ELEVATION. PT SOB WITH EXERTION; PT STARTED ON 3L O2 VIA NC THIS AM, TITRATED TO 2L O2 VIA NC; SPO2>90% FOR MAJORITY OF SHIFT 87-89% WITH AMBULATION. PT DENIES NAUSEA T/O SHIFT. DRESSING TO BLE CHANGES THIS AM. PT RECEIVING PO STEROIDS AND TORSEMIDE. VSS NO OTHER ACUTE CHANGES NOTED DURING SHIFT. WILL CONTINUE TO MONITOR UNTIL REPORT GIVEN TO ONCOMING RN.
--- NOTE | 2019-11-08 05:01 | NUR ---
SHIFT SUMMARY PT ALERT AND ORIENTED. VS STABLE. HR AFIB 80-110'S. BP STABLE. O2 SATS REMAIN ABOVE 90% ON CPAP WITH 2L BLEED IN. PT USES 2L OXYMIZER WHEN AWAKE. PT COMPLAINED ABOUT LEG PAIN THAT IMPOVED WITH MEDICATION ADMINISTRATION. PT HAS BEEN UP MULTIPLE TIMES THROUGHT THE NIGHT TO THE BSC WITH SBA. PT HAS WEEPING EDEMA TO BLE THAT ARE DRESSED. WILL CONTINUE TO MONITOR AND REPORT TO ONCOMING RN. CALL LIGHT IN REACH.
[2019-11-08] MEDS ORDERED: DELTASONE20 MG PO (10:30)
[2019-11-08] MEDS ORDERED: METO50ER PO (10:48)
--- NOTE | 2019-11-08 11:12 | NUR ---
pt laying in bed awake a/ox3, pleasant and cooperative with care, follows commands well, denies pain, feels like she is improving, had a good night, lungs are course t/o, resp even and unlabored at rest, is currently on 2 liters 02 is a home 02 user at 2 liters, no cough noted, hrirr, tele in place running afib per monitor, see strip, trace edema noted, ppp+1, cap refill <3sec, vs stable, afebrile, iv site is clear and patent, btx4, abd flat soft nontender, voids without diff, skin c/w/d, maew, helena, call light in reach.
--- NOTE | 2019-11-08 13:25 | NUR ---
PT HAS BEEN DISCHARGED TO HOME, SHE FEELS THAT SHE IS READY, NEW MEDS WERE CALLED IN TO HER PHARMACY, IV REMOVED INTACT, WENT OVER HER DISCHARGE INSTRUCTIONS WITH HER, SHE VERBALIZED UNDERSTANDING, WENT OVER HER MEDICATION CHANGES WITH HER, SHE VERBALIZED UNDERSTANDING. LEFT VIA WHEELCHAIR WITH PHARMACOVIGILANCE SAFETY EXPERT AND GRANDDAUGHTER WHO IS TAKNG HER HOME.
== END 2019-11-08 13:37 | disposition home or self-care (01) | DRG 291 ==
LOC: ER 16:51 → MEDS 16:52 → PCU 11-02 21:09
PROVIDERS: Hospitalist; Internal Medicine; Internal Medicine Gastroenterology; Nurse Practitioner Acute Care; Physician Assistant; ADMIT Internal Medicine
PROC: 0DD68ZX Extraction of Stomach, Via Natural or Artificial Opening Endoscopic, Diagnostic (ICD-10-PCS; 2019-11-01)
PROC: 0DD98ZX Extraction of Duodenum, Via Natural or Artificial Opening Endoscopic, Diagnostic (ICD-10-PCS; principal; 2019-11-01 07:30)
DX: I13.0 Hypertensive heart and chronic kidney disease with heart failure and stage 1 through stage 4 chronic kidney disease, or unspecified chronic kidney disease (principal); J96.21 Acute and chronic respiratory failure with hypoxia; I50.33 Acute on chronic diastolic (congestive) heart failure; J44.1 Chronic obstructive pulmonary disease with (acute) exacerbation; N17.9 Acute kidney failure, unspecified; K92.1 Melena; Z68.41 Body mass index [BMI] 40.0-44.9, adult; G47.33 Obstructive sleep apnea (adult) (pediatric); N18.3 Chronic kidney disease, stage 3 (moderate); F17.210 Nicotine dependence, cigarettes, uncomplicated; E11.22 Type 2 diabetes mellitus with diabetic chronic kidney disease; Z99.81 Dependence on supplemental oxygen; D64.9 Anemia, unspecified; I48.0 Paroxysmal atrial fibrillation; D50.0 Iron deficiency anemia secondary to blood loss (chronic); E87.5 Hyperkalemia; R00.1 Bradycardia, unspecified; E66.01 Morbid (severe) obesity due to excess calories
CPT/HCPCS: 36415; 36416; 36430; 51702; 71045; 71046; 76770; 80048; 80069; 81001; 82550; 82570; 82784; 82803; 82947; 83735; 83880; 83935; 84156; 84165; 84300; 84484; 84550; 85014; 85018; 85025; 85027; 86334; 86850; 86900; 86901; 86923; 87205; 88305; 88342; 93005; 93010; 94640; 94660; 94664; 94667; 94760; 94762; 96374-59; 96375-59; 97110; 97116; 97162; 97530; 98960; 99285-25; 99407; C9113; J1940; J2001; J2250; J2704; J2930; J3010; J7050; J7120; J7512; P9016

== ENCOUNTER 2019-11-19 07:47 | Day surgery (SDC) | payer MEDICARE, SELFPAY ==
[~2019-11-19] VITALS: Ht 167.6 cm; Wt 113.0 kg
[~2019-11-19 07:47] MED LIST changes: +ALLO100 PO; +BASAGLAR K100 UNIT/1 SC; +DELTASONE20 MG PO; +Lopressor 50 mg50 MG PO; +SPIR50 PO; +TRELEGY ELLIPT1 EACH INH; +VITAMIN D350 MCG PO
[2019-11-19] MEDS ORDERED: Pacerone400 MG PO (09:02)
--- NOTE | 2019-11-19 09:13 | NUR ---
DISCHARGE PT CONNECTED TO MONITOR. PT NOTED TO BE IN SINUS RHYTHM. 12 LEAD EKG COMPLETED NOTED SAME. DR. MAY NOTIFIED. PT DISCHARGED WITHOUT CARDIOVERSION. PT DISCHARGED.
== END 2019-11-19 23:12 | disposition home or self-care (01) ==
LOC: MHTC 07:47
DX: I48.0 Paroxysmal atrial fibrillation (principal); E11.9 Type 2 diabetes mellitus without complications; E66.01 Morbid (severe) obesity due to excess calories; I11.9 Hypertensive heart disease without heart failure; J44.9 Chronic obstructive pulmonary disease, unspecified; G47.33 Obstructive sleep apnea (adult) (pediatric); F17.210 Nicotine dependence, cigarettes, uncomplicated; I44.0 Atrioventricular block, first degree; I45.10 Unspecified right bundle-branch block; J96.21 Acute and chronic respiratory failure with hypoxia; Z79.01 Long term (current) use of anticoagulants; Z79.4 Long term (current) use of insulin; Z79.899 Other long term (current) drug therapy; Z88.0 Allergy status to penicillin
CPT/HCPCS: 93005; 93010

== ENCOUNTER 2019-12-18 01:53 | Day surgery (SDC) | payer MEDICARE ==
[~2019-12-18 01:53] MED LIST changes: +Pacerone400 MG PO
[2019-12-24] MEDS ORDERED: FLUT1DIS5 INH (06:49)
[2019-12-24] MEDS ORDERED: VITAMIN D350 MCG PO (06:49)
[2019-12-24] MEDS ORDERED: TRELEGY ELLIPT1 EACH INH ×2 (06:50→06:54)
[2019-12-24] MEDS ORDERED: COMBIVENT RESPIM4 GM INH (06:53)
== END 2019-12-18 23:00 | disposition home or self-care (01) ==
LOC: WOUND 01:53
DX: E13.622 Other specified diabetes mellitus with other skin ulcer (principal); E13.59 Other specified diabetes mellitus with other circulatory complications; E13.22 Other specified diabetes mellitus with diabetic chronic kidney disease; L97.821 Non-pressure chronic ulcer of other part of left lower leg limited to breakdown of skin; F17.218 Nicotine dependence, cigarettes, with other nicotine-induced disorders; X58.XXXA Exposure to other specified factors, initial encounter; N18.3 Chronic kidney disease, stage 3 (moderate); Z99.81 Dependence on supplemental oxygen; Z71.6 Tobacco abuse counseling; Z88.6 Allergy status to analgesic agent; Z88.0 Allergy status to penicillin; Z79.899 Other long term (current) drug therapy; Z79.01 Long term (current) use of anticoagulants; Z79.4 Long term (current) use of insulin

== ENCOUNTER 2019-12-24 07:53 | Day surgery (SDC) | payer MEDICARE ==
[~2019-12-24 07:53] MED LIST changes: +COMBIVENT RESPIM4 GM INH; +FLUT1DIS5 INH
--- NOTE | 2019-12-24 08:40 | NUR ---
0840 PATIENT ARRIVED FOR DCCV AND WAS FOUND IN SINUS RHYTHM. [address]FORMED [address] MUSE NOTIFIED AND REVIEWED THE EKG.
--- NOTE | 2019-12-24 09:39 | NUR ---
0925 DR. MUSE IN TO SEE PATIENT AND CHANGED HER AMINODARONE TO 200 MG ORALLY DAILY. HE ALSO ORDERED TO GET AN EKG IN ONE WEEK. PATIENT DRESSED ADN DISCHARGED HOME. PROCEDURE CANCELLED.
== END 2019-12-24 09:30 | disposition home or self-care (01) ==
LOC: MHTC 07:53
DX: I48.0 Paroxysmal atrial fibrillation (principal); I10 Essential (primary) hypertension; E11.9 Type 2 diabetes mellitus without complications; G47.33 Obstructive sleep apnea (adult) (pediatric); J44.9 Chronic obstructive pulmonary disease, unspecified; E66.01 Morbid (severe) obesity due to excess calories; F17.210 Nicotine dependence, cigarettes, uncomplicated; Z79.4 Long term (current) use of insulin; Z79.01 Long term (current) use of anticoagulants; Z79.899 Other long term (current) drug therapy; Z88.0 Allergy status to penicillin; Z99.81 Dependence on supplemental oxygen
CPT/HCPCS: 93005; 93010

== ENCOUNTER 2019-12-27 00:30 | Day surgery (SDC) | payer MEDICARE | END 2019-12-27 23:24 | disposition home or self-care (01) | LOC: WOUND 00:30 | DX: E11.622 Type 2 diabetes mellitus with other skin ulcer (principal); E11.59 Type 2 diabetes mellitus with other circulatory complications; E11.51 Type 2 diabetes mellitus with diabetic peripheral angiopathy without gangrene; L97.821 Non-pressure chronic ulcer of other part of left lower leg limited to breakdown of skin; L97.811 Non-pressure chronic ulcer of other part of right lower leg limited to breakdown of skin; F17.208 Nicotine dependence, unspecified, with other nicotine-induced disorders; S61.401D Unspecified open wound of right hand, subsequent encounter; I10 Essential (primary) hypertension; J44.9 Chronic obstructive pulmonary disease, unspecified; E66.01 Morbid (severe) obesity due to excess calories; G47.33 Obstructive sleep apnea (adult) (pediatric); Z71.6 Tobacco abuse counseling; Z99.81 Dependence on supplemental oxygen; Z68.38 Body mass index [BMI] 38.0-38.9, adult; Z79.899 Other long term (current) drug therapy; Z79.4 Long term (current) use of insulin; Z79.01 Long term (current) use of anticoagulants ==

== ENCOUNTER 2019-12-31 08:49 | Day surgery (SDC) | payer MEDICARE ==
[~2019-12-31 08:49] MED LIST changes: -PRAM.125 PO; -THERA-D2000 UNIT PO
[2020-01-01] MEDS ORDERED: THERA-D2000 UNIT PO (15:29)
[2020-01-01] MEDS ORDERED: PRAM.125 PO (15:30)
[2020-01-07] MEDS ORDERED: TRELEGY ELLIPT1 EACH INH (07:29)
== END 2019-12-31 12:00 | disposition home or self-care (01) ==
LOC: WOUND 08:49
DX: E13.622 Other specified diabetes mellitus with other skin ulcer (principal); E13.51 Other specified diabetes mellitus with diabetic peripheral angiopathy without gangrene; E13.59 Other specified diabetes mellitus with other circulatory complications; L97.821 Non-pressure chronic ulcer of other part of left lower leg limited to breakdown of skin; L97.811 Non-pressure chronic ulcer of other part of right lower leg limited to breakdown of skin; S61.401D Unspecified open wound of right hand, subsequent encounter; F17.208 Nicotine dependence, unspecified, with other nicotine-induced disorders; Z71.6 Tobacco abuse counseling; Z99.81 Dependence on supplemental oxygen; Z79.899 Other long term (current) drug therapy; Z79.4 Long term (current) use of insulin

== ENCOUNTER → 2019-12-31 | Outpatient (CLI) | payer MEDICARE ==
[~2019-12-31] MED LIST changes: +PRAM.125 PO; +THERA-D2000 UNIT PO
[2019-12-31 12:14] LABS: Source, Urine Clean Catch
[2019-12-31 13:52] LABS: BASOPHILS ABSOLUTE AUTO 0.04 K/mm3 (0.00-0.23); BASOPHILS PERCENT AUTO 0 % (0-2); EOSINOPHILS ABSOLUTE AUTO 0.04 K/mm3 (0.00-0.68); EOSINOPHILS PERCENT AUTO 0 % (0-6); Hematocrit 26.3 % (33.0-51.0); IMMATURE GRAN PERCENT AUTO 1 % (0-1); LYMPHOCYTES ABSOLUTE AUTO 1.39 K/mm3 (0.84-5.20); LYMPHOCYTES PERCENT AUTO 12 % (21-46); MONOCYTES ABSOLUTE AUTO 0.52 K/mm3 (0.16-1.47); MONOCYTES PERCENT AUTO 4 % (4-13); Mean Corpuscular HGB 19.7 pg (26.0-34.0); Mean Corpuscular HGB Conc 26.6 g/dL (31.5-36.5); Mean Platelet Volume 10.6 fL (9.1-12.4); NEUTROPHILS ABSOLUTE AUTO 9.78 K/mm3 (1.96-9.15); NEUTROPHILS PERCENT AUTO 83 % (41-73); Platelet Count 384 K/mm3 (150-400); RDW Coefficient Variation 20.1 % (11.7-14.2); RDW Standard Deviation 53.7 fL (35.1-46.3); Red Blood Cell Count 3.55 M/mm3 (3.80-5.20); White Blood Cell Count 11.87 K/mm3 (4.00-11.30)
[2019-12-31 14:03] LABS: Mean Corpuscular Volume 74 fL (80-100)
[2019-12-31 14:11] LABS: Appearance, Urine Clear (Clear); Bilirubin, Urine Neg (Neg); Blood, Urine Neg (Neg); Color, Urine Yellow (P-Yellow); Glucose Qualitative, Urine Neg (Neg); Ketones, Urine Neg (Neg); Leukocyte Esterase, Urine Neg (Neg); Nitrite, Urine Neg (Neg); Protein, Urine Neg (Neg); Urobilinogen, Urine NORM (Normal)
[2019-12-31 14:34] LABS: Percent Saturation 4.3 % (15.0-50.0)
[2019-12-31 14:38] LABS: Albumin, Blood 3.2 g/dL (3.4-5.0); Anion Gap 6 mmol/L (6-16); Blood Urea Nitrogen 46 mg/dL (8-24); Bun/Creatinine Ratio 34.3 (12.0-20.0); CO2, Blood 29 mmol/L (21-32); Calcium, Blood 8.8 mg/dL (8.5-10.1); Chloride, Blood 101 mmol/L (98-108); Creatinine, Blood 1.34 mg/dL (0.40-1.00); Glomerular Filtration Rate 41 (60-); Glucose, Blood 166 mg/dL (70-99); Phosphorus, Blood 3.5 mg/dL (2.5-4.9); Potassium, Blood 4.3 mmol/L (3.5-5.5); Sodium, Blood 136 mmol/L (136-145)
[2019-12-31 14:38] LABS: Protein, Urine Random 8.2 mg/dL (0.0-11.9)
[2019-12-31 14:56] LABS: Creatinine, Urine Random 23.3 mg/dL (27.00-270.00)
[2020-01-01 13:09] LABS: ANTI-DSDNA ANTIBODIES <1 IU/mL (0-9); SJOGREN'S ANTI-SS-A <0.2 AI (0.0-0.9); SJOGREN'S ANTI-SS-B <0.2 AI (0.0-0.9); SMITH ANTIBODIES <0.2 AI (0.0-0.9)
[2020-01-01 17:07] LABS: COMPLEMENT C3, SERUM 148 mg/dL (82-167); COMPLEMENT C4, SERUM 23 mg/dL (14-44)
[2020-01-02 14:10] LABS: ANA DIRECT Positive (Negative); ANTI-CENTROMERE B ANTIBODIES <0.2 AI (0.0-0.9); ANTI-DNA (DS) AB QN <1 IU/mL (0-9); ANTI-JO-1 <0.2 AI (0.0-0.9); ANTICHROMATIN ANTIBODIES <0.2 AI (0.0-0.9); ANTIMYELOPEROXIDASE (MPO) ABS <9.0 U/mL (0.0-9.0); ANTIPROTEINASE 3 (PR-3) ABS <3.5 U/mL (0.0-3.5); ANTIRIBOSOMAL P ANTIBODIES <0.2 AI (0.0-0.9); ANTISCLERODERMA-70 ANTIBODIES <0.2 AI (0.0-0.9); ATYPICAL PANCA <1:20 titer (Neg:<1:20); CYTOPLASMIC (C-ANCA) <1:20 titer (Neg:<1:20); PERINUCLEAR (P-ANCA) <1:20 titer (Neg:<1:20); SJOGREN'S ANTI-SS-A <0.2 AI (0.0-0.9); SJOGREN'S ANTI-SS-B <0.2 AI (0.0-0.9); SMITH ANTIBODIES <0.2 AI (0.0-0.9); SMITH/RNP ANTIBODIES <0.2 AI (0.0-0.9)
== END | disposition home or self-care (01) ==
LOC: LAB 12:01 → LAB SHORT 12:01
PROVIDERS: Internal Medicine
DX: N18.3 Chronic kidney disease, stage 3 (moderate) (principal); D63.1 Anemia in chronic kidney disease; D50.9 Iron deficiency anemia, unspecified; E55.9 Vitamin D deficiency, unspecified
CPT/HCPCS: 80069; 81003; 82306; 82570; 82728; 83520; 83540; 83550; 83970; 84156; 85025; 86038; 86160; 86225; 86235; 86256

== ENCOUNTER 2020-01-03 00:13 | Day surgery (SDC) | payer MEDICARE ==
[~2020-01-03 00:13] MED LIST changes: +PRAM.125 PO; +THERA-D2000 UNIT PO
[2020-01-07] MEDS ORDERED: TRELEGY ELLIPT1 EACH INH (07:29)
== END 2020-01-03 22:57 | disposition home or self-care (01) ==
LOC: WOUND 00:13
DX: Z09 Encounter for follow-up examination after completed treatment for conditions other than malignant neoplasm (principal); Z87.2 Personal history of diseases of the skin and subcutaneous tissue; I73.9 Peripheral vascular disease, unspecified; F17.208 Nicotine dependence, unspecified, with other nicotine-induced disorders; E13.59 Other specified diabetes mellitus with other circulatory complications; E13.36 Other specified diabetes mellitus with diabetic cataract; Z99.81 Dependence on supplemental oxygen; Z71.6 Tobacco abuse counseling
CPT/HCPCS: G0463

== ENCOUNTER 2020-04-30 09:45 | Day surgery (SDC) | payer MEDICARE ==
[~2020-04-30] VITALS: Ht 167.6 cm; Wt 105.0 kg
--- NOTE | 2020-04-30 11:38 | NUR ---
04/30/20 Jeanna8 Marti Delarosa SIMETHICONE USED DURING PROCEDURE.
== END 2020-04-30 12:46 | disposition home or self-care (01) ==
LOC: ORSCSDS 09:45
PROVIDERS: Internal Medicine Gastroenterology
PROC: 0DBL8ZX Excision of Transverse Colon, Via Natural or Artificial Opening Endoscopic, Diagnostic (ICD-10-PCS; principal; 2020-04-30 11:00)
PROC: 0D5F8ZZ Destruction of Right Large Intestine, Via Natural or Artificial Opening Endoscopic (ICD-10-PCS; principal; 2020-04-30 11:00)
PROC: 0DBM8ZX Excision of Descending Colon, Via Natural or Artificial Opening Endoscopic, Diagnostic (ICD-10-PCS; principal; 2020-04-30 11:00)
DX: D50.9 Iron deficiency anemia, unspecified (principal); Z86.010 Personal history of colon polyps; Q27.33 Arteriovenous malformation of digestive system vessel; D12.4 Benign neoplasm of descending colon; D12.3 Benign neoplasm of transverse colon; K63.5 Polyp of colon; K57.30 Diverticulosis of large intestine without perforation or abscess without bleeding; K64.1 Second degree hemorrhoids; I48.91 Unspecified atrial fibrillation; Z79.01 Long term (current) use of anticoagulants; J44.9 Chronic obstructive pulmonary disease, unspecified; Z99.81 Dependence on supplemental oxygen; Z87.891 Personal history of nicotine dependence; N18.9 Chronic kidney disease, unspecified; E11.9 Type 2 diabetes mellitus without complications; Z86.73 Personal history of transient ischemic attack (TIA), and cerebral infarction without residual deficits; Z79.4 Long term (current) use of insulin; Z79.899 Other long term (current) drug therapy; E66.01 Morbid (severe) obesity due to excess calories; Z68.37 Body mass index [BMI] 37.0-37.9, adult
CPT/HCPCS: 82947; 88305; J2704; J7120